=== PATIENT | male | born 1985 | race Caucasian/White ===

== ENCOUNTER 2022-02-10 10:55 | Outpatient (CLI) | payer BC ==
[2022-02-10] MEDS ORDERED: Magnevist 469MG/ML 20 ML VIAL ONE (12:42)
== END 2022-02-10 10:56 | disposition home or self-care (01) ==
LOC: CSHMRI 10:55
PROVIDERS: ATTEND Psychiatry & Neurology Neurology
DX: M54.16 Radiculopathy, lumbar region (principal)
CPT/HCPCS: 72158; A9579

== ENCOUNTER 2023-06-02 08:25 | Outpatient (CLI) | payer BC | END 2023-06-02 08:26 | disposition home or self-care (01) | LOC: CSHULT 08:25 | PROVIDERS: ATTEND Physician Assistant Medical | DX: R10.9 Unspecified abdominal pain (principal) | CPT/HCPCS: 76700 ==

== ENCOUNTER 2024-02-05 14:02 | Outpatient (CLI) | payer BC | END 2024-02-05 14:03 | disposition home or self-care (01) | LOC: CSHMRI 14:02 | PROVIDERS: ATTEND Physician Assistant | DX: M53.3 Sacrococcygeal disorders, not elsewhere classified (principal); M54.16 Radiculopathy, lumbar region | CPT/HCPCS: 72148 ==

== ENCOUNTER 2025-02-19 13:57 | Outpatient (CLI) | payer BC ==
[~2025-02-19 13:57] MED LIST: Iopamidol 300 61% 100 ML VIAL FS ONE
== END 2025-02-19 13:58 | disposition home or self-care (01) ==
LOC: CSHCT 13:57
PROVIDERS: ATTEND Physician Assistant Medical
DX: R10.9 Unspecified abdominal pain (principal); K63.9 Disease of intestine, unspecified; N32.9 Bladder disorder, unspecified
CPT/HCPCS: 74177